=== PATIENT | female | born 1940 | race Caucasian/White ===

== ENCOUNTER 2018-02-22 10:55 | Emergency (ER) | payer OTHER ==
--- NOTE | 2018-02-22 11:11 | EDPHY ---
H & P Time Seen by Provider: 02/22/18 11:10 HPI/ROS: Chief complaint. Abdominal pain HPI. Patient is a 77-year-old female presents emergency department with intermittent low abdominal pain for the last 4 days. Pain is especially present at night and not much during the day. She currently has no abdominal pain. She feels constipated. She describes the pain is sharp when she has a without radiation. No change with movement or position. No nausea vomiting or diarrhea. No urinary symptoms. No fever. She saw her PCP 2 days ago and they noted blood in her urine and she was started on Bactrim of which she has had 2 days of antibiotic therapy. She was seen at urgent care today for continued suprapubic or low abdominal pain. She had a KUB which showed scoliosis, constipation but could not exclude distal ureteral stone. Her urine showed 1+ blood but no leukocytes. She is sent here for further evaluation ROS 10 systems were reviewed and negative with the exception of the elements mentioned in the history of present illness Past Medical/Surgical History: Past medical history is significant for dyslipidemia Social History: , nonsmoker, no alcohol Smoking Status: Never smoked Physical Exam: General Appearance: Alert pleasant well-developed female mild distress vitals are stable Eyes: Pupils equal and round no pallor or injection. ENT, Mouth: Mucous membranes are moist. Respiratory: There are no retractions, lungs are clear to auscultation. Cardiovascular: Regular rate and rhythm. Gastrointestinal: Abdomen is soft and currently nontender. Patient shows me the area of discomfort which is both sides of the low abdomen and suprapubic area. There are no masses. Normal bowel sounds Neurological: Awake and alert, sensory and motor exams grossly normal. Skin: Warm and dry, no rashes. Musculoskeletal: Neck is supple nontender. Extremities symmetrical, full range of motion. Psychiatric: Patient is oriented X 3, there is no agitation. Constitutional: Initial Vital Signs Temperature (C) 36.9 C 02/22/18 11:01 Heart Rate 93 02/22/18 11:01 Respiratory Rate 16 02/22/18 11:01 Blood Pressure 140/88 H 02/22/18 11:01 O2 Sat (%) 95 02/22/18 11:01 O2 Delivery Mode Room Air Allergies/Adverse Reactions: No Known Allergies Allergy (Verified 02/22/18 11:04) Home Medications: Medication Instructions Recorded Lipitor 02/22/18 Sulfa Antibiotic 02/22/18 levOFLOXACIN [levAQUIN (*)] 750 mg PO DAILY #7 tab 02/22/18 metroNIDAZOLE [Flagyl 500 mg (*)] 500 mg PO QID #28 tab 02/22/18 Medical Decision Making - Diagnostics Imaging Results: Imaging Impressions Abdomen/Pelvis CT 02/22/18 11:29 Impression: 1. Sigmoid diverticulitis without evidence of colon obstruction or perforation at this time. 2. Atherosclerosis. Results discussed with Dr. Darius West at 12:04 PM. General information for patients regarding this examination can be found at [email or web address]. If you have questions or comments about this report, please contact me at [phone] (hospital) or [phone] (cell). KUB from earlier today is reviewed by me showing scoliosis, constipation None contrast abdomen pelvis CT shows sigmoid diverticulitis without evidence of perforation or obstruction. Reviewed by me and discussed with Dr. Celestin Procedures: IV normal saline ED Course/Re-evaluation: Point of care chemistry is normal. Point of care CBC shows mildly elevated white blood cell count Re-evaluation 12:15 p.m.. Patient and I discussed imaging study results as well as laboratory evaluation. We discussed diagnosis, treatment plan including criteria for return importance of follow-up further evaluation. She expresses understanding and agreement Differential Diagnosis: I considered kidney stone, constipation, urinary tract infection, diverticulitis - Data Points Laboratory Results: 02/22/18 11:41 POC Sodium 139 mEq/L mEq/L (135-145) POC Potassium 3.5 mEq/L mEq/L (3.3-5.0) POC Chloride 101.0 mEq/L mEq/L (97-110) POC Total CO2 25 mEq/L mEq/L (22-31) POC BUN 11 mg/dL mg/dL (7-23) POC Creatinine 0.8 mg/dL mg/dL (0.6-1.0) POC Glucose 99 mg/dL mg/dL (70-100) POC Calcium 9.3 mg/dL mg/dL (8.5-10.4) Point of Care Test Results: CBC CBC Collection Date 02/22/18 CBC Collection Time 11:39 WBC 10.9 RBC 4.38 HGB 13.9 HCT 40.3 PLT 250 Neut # 8.0 Neut 73.7 LYMPH # 1.8 LYMPH 16.4 Other WBC # 1.1 Other WBC 9.9 MCV 92.0 Chemistry 02/22/18 11:41 POC Sodium 139 mEq/L mEq/L (135-145) POC Potassium 3.5 mEq/L mEq/L (3.3-5.0) POC Chloride 101.0 mEq/L mEq/L (97-110) POC Total CO2 25 mEq/L mEq/L (22-31) POC BUN 11 mg/dL mg/dL (7-23) POC Creatinine 0.8 mg/dL mg/dL (0.6-1.0) POC Glucose 99 mg/dL mg/dL (70-100) POC Calcium 9.3 mg/dL mg/dL (8.5-10.4) Basic Metabolic Panel BMP Collection Date 02/22/18 BMP Collection Time 11:39 Departure - Departure Disposition: Home, Routine, Self-Care Clinical Impression: Sigmoid diverticulitis Condition: Good Instructions: Diverticulitis (ED), Diverticulitis Diet (ED) Additional Instructions: Discontinue the Bactrim (sulfa antibiotic). Flagyl and Levaquin as antibiotics. Begin those today Drink plenty of fluids and stay hydrated Return for worsening pain, fever, vomiting Re-evaluation by Dr. Elizondo in 2-3 days Referrals: Adalberto Elizondo MD [Primary Care Provider] - 2-3 days without fail Prescriptions: levOFLOXACIN [levAQUIN (*)] 750 mg PO DAILY #7 tab metroNIDAZOLE [Flagyl 500 mg (*)] 500 mg PO QID #28 tab
[2018-02-22 12:47] VITALS: BP 134/80
== END 2018-02-22 12:35 | disposition home or self-care (01) ==
LOC: CED 10:55
DX: K57.32 Diverticulitis of large intestine without perforation or abscess without bleeding (principal)
CPT/HCPCS: 74176-PO; 80048-PO

== ENCOUNTER → 2018-02-22 | Outpatient (CLI) | payer OTHER | LOC: GIMAGING 09:42 | PROVIDERS: ATTEND Registered Nurse | DX: M41.85 Other forms of scoliosis, thoracolumbar region (principal); K59.00 Constipation, unspecified | CPT/HCPCS: 74018-PO ==